=== PATIENT | male | born 1985 | race Two or more races ===

== ENCOUNTER → 2021-10-24 | Emergency (ER) | payer OTHER ==
[~2021-10-24] VITALS: Ht 188 cm; Wt 89.8 kg
[~2021-10-24] MED LIST: GLUMETZA1000 MG; TENORMIN50 M1
== END | disposition home or self-care (01) ==
LOC: ER 11:01
DX: S62.639A Displaced fracture of distal phalanx of unspecified finger, initial encounter for closed fracture (principal); X58.XXXA Exposure to other specified factors, initial encounter; Y93.9 Activity, unspecified; Y92.9 Unspecified place or not applicable; Y99.9 Unspecified external cause status